=== PATIENT | female | born 1950 | race Native Hawaiian/Other Pacific Islander ===

== ENCOUNTER 2020-01-24 14:44 | Outpatient (CLI) | payer OTHER | END 2020-01-24 19:53 | disposition home or self-care (01) | LOC: LAB 14:44 | DX: Z11.59 Encounter for screening for other viral diseases (principal); R50.9 Fever, unspecified; R53.83 Other fatigue; R05 Cough | CPT/HCPCS: 87635; G2023; U00003 ==